=== PATIENT | female | born 1965 | race Caucasian/White ===

== ENCOUNTER → 2017-05-27 | Outpatient (CLI) | payer BC ==
[~2017-05-27] MED LIST: ACET1TAB84 PO; CALC1TAB5 PO; CHOL100010 PO; DIAZ-165 PO; DOCU-94 PO; FLUT44AE INH; ONDA4TAB46 PO; OXYC1TAB3 PO; RANI300T2 PO; SENN-65 PO
== END | disposition home or self-care (01) ==
LOC: C.PAPS 11:44
PROVIDERS: ATTEND Obstetrics & Gynecology
DX: Z01.419 Encounter for gynecological examination (general) (routine) without abnormal findings (principal)

== ENCOUNTER → 2017-06-12 | Outpatient (CLI) | payer BC ==
--- NOTE | 2017-06-12 14:20 | MAMMOGRAPHY REPORT ---
BILATERAL DIGITAL SCREENING MAMMOGRAM TOMOSYNTHESIS WITH CAD: 06/12/2017 CLINICAL HISTORY: Routine screening. Patient has no complaints. TECHNIQUE: Breast tomosynthesis in addition to standard 2D mammography was performed. Current study was also evaluated with a Computer Aided Detection (CAD) system. COMPARISON: Comparison is made to exams dated: 12/23/2013 mammogram, 05/01/2015 mammogram, 12/22/2012 ma mmogram, 12/12/2011 mammogram, 12/10/2010 mammogram, and 11/14/2009 mammogram - [facility] nter. BREAST COMPOSITION: The tissue of both breasts is heterogeneously dense, which may obscure small mas ses. FINDINGS: No suspicious masses, calcifications, or areas of architectural distortion are noted in ei ther breast. There has been no significant interval change compared to prior exams. Asymmetry in the left lateral posterior breast on the cc view is stable compared to prior exams including the 2013 ex am. IMPRESSION: ACR BI-RADS CATEGORY 2: BENIGN There is no mammographic evidence of malignancy. A 1 year screening mammogram is recommended. The pa tient will receive written notification of the results. Approximately 10% of breast cancers are not detected with mammography. A negative mammographic report should not delay biopsy if a clinically suggestive mass is present. Nena Braga M.D. /:06/12/2017 12:23:29 Educational Paraprofessional: Eliceo Barr M, [facility] letter sent: Normal 1/2 BI-RADS Code: ACR BI-RADS Category 2: Benign
== END | disposition home or self-care (01) ==
LOC: C.MAMM 11:47
PROVIDERS: ATTEND Obstetrics & Gynecology
DX: Z12.31 Encounter for screening mammogram for malignant neoplasm of breast (principal)